=== PATIENT | female | born 1980 | race Two or more races ===

== ENCOUNTER 2024-10-24 14:12 | Outpatient (CLI) | payer OTHER | END 2024-10-24 14:13 | disposition home or self-care (01) | LOC: SONOGRAMA 14:12 | PROVIDERS: ATTEND Pathology Anatomic Pathology & Clinical Pathology | DX: E04.1 Nontoxic single thyroid nodule (principal); E07.89 Other specified disorders of thyroid; D34 Benign neoplasm of thyroid gland ==

== ENCOUNTER 2025-07-27 10:53 | Outpatient (CLI) | payer OTHER | END 2025-07-27 10:54 | disposition home or self-care (01) | LOC: SONOGRAMA 10:53 | PROVIDERS: ATTEND Pathology Anatomic Pathology & Clinical Pathology | DX: D34 Benign neoplasm of thyroid gland (principal); E78.9 Disorder of lipoprotein metabolism, unspecified; E04.1 Nontoxic single thyroid nodule ==